=== PATIENT | female | born 1995 | race Caucasian/White ===

== ENCOUNTER 2017-07-04 14:00 | Inpatient (IN) | payer OTHER ==
[2017-07-04] VITALS (10 sets, daily range): BP systolic 94–121; BP diastolic 54–85
[~2017-07-04] VITALS: Ht 165.1 cm; Wt 63.5 kg
[~2017-07-04 14:00] MED LIST: Sodium Chloride 500ML 500 ML IV ONE
[2017-07-04 14:24] LABS: BASOPHILS % (AUTO) 0.3 % (0.0-2.0); HEMATOCRIT 52.1 % (37.0-47.0); HEMOGLOBIN 15.9 G/DL (12.0-16.0); MEAN CORPUSCULAR VOLUME 97 FL (80-99); MONOCYTES % (AUTO) 3.7 % (1.0-10.0); NEUTROPHILS % (AUTO) 77.9 % (45.0-75.0); PLATELET COUNT 386 K/UL (150-450); RED BLOOD COUNT 5.38 M/UL (4.20-5.40); RED CELL DISTRIBUTION WIDTH 13.4 % (11.6-14.8); WHITE BLOOD COUNT 16.1 K/UL (4.8-10.8)
[2017-07-04] MEDS ORDERED: Sodium Bicarbonate 50ml Carp IV ONE (14:30)
[2017-07-04] MEDS: LR 1000ml 1,000 ML IV SCH ×3 (14:30→20:40)
--- NOTE | 2017-07-04 14:37 | Emergency Room Report ---
History of Present Illness General Chief Complaint: Abdominal Pain Source: Patient, Medical Record Present Illness HPI The patient presents with at least 3 days of abdominal discomfort and vomiting. She is diabetic and stopped taking her insulin yesterday. She feels short of breath. She has some abdominal discomfort. She's vomited up some material that might have some blood in it. She denies any melena. She's never been this ill before. She does take insulin. She denies at this time. She denies dysuria or productive cough. She also has had no fever. She feels generalized weakness. Lower back pain more than abdomen = 10/10, aching, constant. No diarrhea. She feels somewhat confused. Vision has been blurry. Allergies: Coded Allergies: No Known Allergies (Unverified , 07/04/17) Patient History Past Medical History: see triage record Social History: Denies: smoking, alcohol use, drug use Social History Narrative from [place] with boyfriend in [place] Reviewed Nursing Documentation: PMH: Agreed, PSxH: Agreed Nursing Documentation-PMH Past Medical History: No History, Except For Hx Diabetes: Yes - type I Review of Systems All Other Systems: negative except mentioned in HPI Physical Exam Vital Signs Date Time Temp Pulse Resp B/P (MAP) Pulse Ox O2 Delivery O2 Flow Rate FiO2 07/04/17 13:51 98.8 128 18 109/69 97 Room Air Sp02 EP Interpretation: reviewed, normal General Appearance: moderate distress, lethargic, thin Head: normocephalic Eyes: bilateral eye normal inspection, bilateral eye PERRL ENT: dry mucus membranes Neck: supple Respiratory: chest non-tender, lungs clear, other - Kussmaul respirations Cardiovascular #1: regular rate, rhythm Cardiovascular #2: 2+ radial (R) Gastrointestinal: normal inspection, no mass, non-distended, tenderness - reported, but no guarding or rebound, decreased bowel sounds, scaphoid Genitourinary: no CVA tenderness Musculoskeletal: gait/station normal, normal range of motion, other - reported back tenderness, no bony tenderness Neurologic: responsive, motor strength/tone normal, DTRs symmetric, sensory intact, speech normal Psychiatric: depressed affect Skin: normal inspection, warm/dry Procedures Critical Care Time Critical Care Time Total Critical Care Time: 120 min bedside evaluation and treatment excludes procedures (EKG). Reason for critical care: hyperglycemia, volume depletion, insulin drip, metabolic acidosis, renal insufficiency, repeated evaluations and lab re- evaluation. Possible complications: hypotension, shock, arrhythmias, metabolic acidosis, end organ damage, hypoglycemia. Interventions: Aggressive hydration, insulin IV, insulin drip, analgesia Course: Patient presented with vomiting, back pain and elevated blood sugar. DKA encountered. Initial acidosis treated with one amp bicarb. Aggressive fluid hydration and IV insulin led to decreased in glucose and clinical improvement. Lethargy somewhat prolonged, but repeated examinations, had improvement. Multiple glucose determinations and repeat examinations with discussion with patient and admitting MD. Prolonged acidosis required continuing insulin drip and D51/2NS with potassium. Reassessment of acidosis undertaken. Glucose holding on D51/2NS and potassium holding also. Improved renal function and clinical status. Admitted to ICU. Consultations/alternative hx: Admitting MD, nursing staff, RT, EMS Performed by: Dr. Caraballo Tolerated well with improvement though still critical. Medical Decision Making Diagnostic Impression: Primary Impression: Diabetic ketoacidosis Qualified Codes: E10.10 - Type 1 diabetes mellitus with ketoacidosis without coma Additional Impressions: Leukocytosis Qualified Codes: D72.828 - Other elevated white blood cell count Renal insufficiency Back pain Qualified Codes: M54.5 - Low back pain Vomiting Qualified Codes: R11.14 - Bilious vomiting ER Course This patient is a diabetic presenting with abdominal pain and vomiting not taking her insulin. Differential includes diabetic ketoacidosis, hyperglycemic osmotic state, hyperglycemia, sepsis, , gastritis, pancreatitis amongst others. N. exam diabetic ketoacidosis as high on the list. Return with IV hydration and repeated glucose. A venous blood gas will be obtained and his bicarbonate was less than 10 she'll get IV bicarbonate. Most likely she will need an insulin drip. Venous blood gas shows a pH of 7.04 with bicarbonate of 6. One amp of bicarbonate was given a. Labs revealed a glucose of 661. Metabolic acidosis, renal insufficiency, leukocytosis. No source of infection and decision to observe without starting antibiotics. 10 units of insulin skin is bolus and the patient was started on 5 units per hour drip of insulin. Patient somewhat obtunded but wakes easily. Patient with improved mentation at 16:15. Treated for pain. Also repeat CMP sent. Accucheck now 406. Examined by Dr. Petit in ED. On insulin drip, sugars 200s. Still with low bicarb. (repeated evaluations with CMP and repeated exams). Clinically improved and no Kussmaul resps. No complaints of pain. Repeat CMP with improved bicarb, still with gap. Renal function better. Glucose 156. Continue drip and hydration - improved tachycardia. Signed out to Dr. Gonzalez. Venous ABG 7.04/HCO3 6 Laboratory Tests Test 07/04/17 14:08 07/04/17 14:14 07/04/17 18:04 07/04/17 20:10 Venous Blood pH Pending Venous Blood Partial Pressure CO2 Pending Venous Blood Partial Pressure O2 Pending Venous Blood HCO3 Pending Venous Blood Total Carbon Dioxide Pending Venous Bld O2 Saturation (Measured) 48.3 Venous Blood Oxygen Saturation Pending Venous Blood Base Excess Pending Methemoglobin 0.4 Sodium (Blood Gas) Pending White Blood Count 16.1 K/UL (4.8-10.8) H Red Blood Count 5.38 M/UL (4.20-5.40) Hemoglobin 15.9 G/DL (12.0-16.0) Hematocrit 52.1 % (37.0-47.0) H Mean Corpuscular Volume 97 FL (80-99) Mean Corpuscular Hemoglobin 29.6 PG (27.0-31.0) Mean Corpuscular Hemoglobin Concent 30.6 G/DL (32.0-36.0) L Red Cell Distribution Width 13.4 % (11.6-14.8) Platelet Count 386 K/UL (150-450) Mean Platelet Volume 6.3 FL (6.5-10.1) L Neutrophils (%) (Auto) 77.9 % (45.0-75.0) H Lymphocytes (%) (Auto) 18.0 % (20.0-45.0) L Monocytes (%) (Auto) 3.7 % (1.0-10.0) Eosinophils (%) (Auto) 0.0 % (0.0-3.0) Basophils (%) (Auto) 0.3 % (0.0-2.0) Sodium Level 137 MMOL/L (136-145) 147 MMOL/L (136-145) #H 147 MMOL/L (136-145) H Potassium Level 4.7 MMOL/L (3.5-5.1) 3.7 MMOL/L (3.5-5.1) 3.8 MMOL/L (3.5-5.1) Chloride Level 95 MMOL/L (98-107) L 107 MMOL/L (98-107) 107 MMOL/L (98-107) Carbon Dioxide Level 6 MMOL/L (21-32) *L 8 MMOL/L (21-32) *L 7 MMOL/L (21-32) *L Anion Gap 36 mmol/L (5-15) H 32 mmol/L (5-15) H 33 mmol/L (5-15) H Blood Urea Nitrogen 14 mg/dL (7-18) 14 mg/dL (7-18) 13 mg/dL (7-18) Creatinine 1.5 MG/DL (0.55-1.30) H 1.5 MG/DL (0.55-1.30) H 1.6 MG/DL (0.55-1.30) H Estimate Glomerular Filtration Rate 43.0 mL/min (>60) 43.0 mL/min (>60) 39.9 mL/min (>60) Glucose Level 662 MG/DL (74-106) *H 285 MG/DL (74-106) #H 285 MG/DL (74-106) H Calcium Level 10.1 MG/DL (8.5-10.1) 9.4 MG/DL (8.5-10.1) 9.2 MG/DL (8.5-10.1) Magnesium Level 2.1 MG/DL (1.8-2.4) Total Bilirubin 0.8 MG/DL (0.2-1.0) 0.4 MG/DL (0.2-1.0) Aspartate Amino Transferase (AST) 34 U/L (15-37) 33 U/L (15-37) Alanine Aminotransferase (ALT) 39 U/L (12-78) 38 U/L (12-78) Alkaline Phosphatase 183 U/L (46-116) H 166 U/L (46-116) H Total Protein 8.4 G/DL (6.4-8.2) H 8.0 G/DL (6.4-8.2) Albumin 4.1 G/DL (3.4-5.0) 3.8 G/DL (3.4-5.0) Globulin 4.3 g/dL 4.2 g/dL Albumin/Globulin Ratio 1.0 (1.0-2.7) 0.9 (1.0-2.7) L Lipase 62 U/L (73-393) L Human Chorionic Gonadotropin, Qual Negative Acetone Level Positive-moderate (NEGATIVE) Hemoglobin A1c 11.2 % (4.3-6.0) H Phosphorus Level 4.0 MG/DL (2.5-4.9) Test 07/04/17 22:40 Sodium Level 144 MMOL/L (136-145) Potassium Level 3.6 MMOL/L (3.5-5.1) Chloride Level 110 MMOL/L (98-107) H Carbon Dioxide Level 16 MMOL/L (21-32) L Anion Gap 18 mmol/L (5-15) H Blood Urea Nitrogen 11 mg/dL (7-18) Creatinine 1.2 MG/DL (0.55-1.30) Estimate Glomerular Filtration Rate 55.7 mL/min (>60) Glucose Level 156 MG/DL (74-106) #H Calcium Level 8.7 MG/DL (8.5-10.1) Total Bilirubin 0.5 MG/DL (0.2-1.0) Aspartate Amino Transferase (AST) 22 U/L (15-37) Alanine Aminotransferase (ALT) 29 U/L (12-78) Alkaline Phosphatase 127 U/L (46-116) H Total Protein 6.2 G/DL (6.4-8.2) L Albumin 3.0 G/DL (3.4-5.0) L Globulin 3.2 g/dL Albumin/Globulin Ratio 0.9 (1.0-2.7) L Microbiology Date/Time Source Procedure Growth Status 07/04/17 22:40 Nasal Not Otherwise Specified Influenza Types A,B Antigen (GOLDY) - Final Complete EKG Diagnostic Results Rate: tachycardiac ST Segments: no acute changes Rhythm Strip Diag. Results EP Interpretation: yes Rhythm: no PVC's, no ectopy, other - ST Chest X-Ray Diagnostic Results Chest X-Ray Diagnostic Results : Chest X-Ray Ordered: Yes # of Views/Limited/Complete: 1 View Indication: Shortness of Breath EP Interpretation: Yes Interpretation: no consolidation, no effusion, no pneumothorax Impression: No acute disease Electronically Signed by: Electronically signed by Jean-Claude Caraballo MD Last Vital Signs Date Time Temp Pulse Resp B/P (MAP) Pulse Ox O2 Delivery O2 Flow Rate FiO2 07/04/17 22:40 99.2 105 14 104/54 99 Room Air 99 Status: improved Disposition: ADMITTED INPATIENT Condition: Critical Jean-Claude Caraballo M.D. Jul 04, 2017 14:37
[2017-07-04 14:41] LABS: ALANINE AMINOTRANSFERASE 39 U/L (12-78); ALBUMIN 4.1 G/DL (3.4-5.0); ALKALINE PHOSPHATASE 183 U/L (46-116); ANION GAP 36 mmol/L (5-15); ASPARTATE AMINO TRANSFERASE 34 U/L (15-37); BILIRUBIN,TOTAL 0.8 MG/DL (0.2-1.0); BLOOD UREA NITROGEN 14 mg/dL (7-18); CALCIUM 10.1 MG/DL (8.5-10.1); CHLORIDE 95 MMOL/L (98-107); CREATININE 1.5 MG/DL (0.55-1.30); POTASSIUM 4.7 MMOL/L (3.5-5.1); SODIUM 137 MMOL/L (136-145)
[2017-07-04] MEDS ORDERED: LANTUS SOL100 UNIT/1 SUBQ (14:47)
[2017-07-04 14:51] LABS: CARBON DIOXIDE 6 MMOL/L (21-32)
[2017-07-04] MEDS ORDERED: Insulin Rate Change 1 Each MISC PRN (15:45)
[2017-07-04] MEDS ORDERED: Levemir Flexpen SUBQ SCH (15:45)
[2017-07-04] MEDS ORDERED: DiphenhydrAMINE 50mg/ml Inj IVP ONE (16:00)
[2017-07-04] MEDS ORDERED: fentaNYL 100 mcg/2 mL IV ONE (16:45)
[2017-07-04] MEDS ORDERED: HUMALOG MI100 UNIT/7 SUBQ (17:53)
[2017-07-04] MEDS ORDERED: FUROSEMIDE20 M1 ORAL (17:53)
[2017-07-04] MEDS ORDERED: D5 1/2NS w/KCl 20mEq 1,000 ML IV ONE (18:29)
[2017-07-04 19:02] LABS: ANION GAP 32 mmol/L (5-15); BLOOD UREA NITROGEN 14 mg/dL (7-18); CALCIUM 9.4 MG/DL (8.5-10.1); CHLORIDE 107 MMOL/L (98-107); CREATININE 1.5 MG/DL (0.55-1.30); POTASSIUM 3.7 MMOL/L (3.5-5.1); SODIUM 147 MMOL/L (136-145)
[2017-07-04 19:05] LABS: CARBON DIOXIDE 8 MMOL/L (21-32)
[2017-07-04 20:40] LABS: ANION GAP 33 mmol/L (5-15); BLOOD UREA NITROGEN 13 mg/dL (7-18); CALCIUM 9.2 MG/DL (8.5-10.1); CHLORIDE 107 MMOL/L (98-107); CREATININE 1.6 MG/DL (0.55-1.30); POTASSIUM 3.8 MMOL/L (3.5-5.1); SODIUM 147 MMOL/L (136-145)
[2017-07-04 20:43] LABS: CARBON DIOXIDE 7 MMOL/L (21-32)
[2017-07-04 20:45] LABS: ALANINE AMINOTRANSFERASE 38 U/L (12-78); ALBUMIN 3.8 G/DL (3.4-5.0); ALBUMIN/GLOBULIN RATIO 0.9 (1.0-2.7); ALKALINE PHOSPHATASE 166 U/L (46-116); ASPARTATE AMINO TRANSFERASE 33 U/L (15-37); BILIRUBIN,TOTAL 0.4 MG/DL (0.2-1.0)
[2017-07-04 23:14] LABS: ANION GAP 18 mmol/L (5-15); BLOOD UREA NITROGEN 11 mg/dL (7-18); CALCIUM 8.7 MG/DL (8.5-10.1); CARBON DIOXIDE 16 MMOL/L (21-32); CHLORIDE 110 MMOL/L (98-107); CREATININE 1.2 MG/DL (0.55-1.30); POTASSIUM 3.6 MMOL/L (3.5-5.1); SODIUM 144 MMOL/L (136-145)
[2017-07-04 23:19] LABS: ALANINE AMINOTRANSFERASE 29 U/L (12-78); ALBUMIN/GLOBULIN RATIO 0.9 (1.0-2.7); ALKALINE PHOSPHATASE 127 U/L (46-116); ASPARTATE AMINO TRANSFERASE 22 U/L (15-37); BILIRUBIN,TOTAL 0.5 MG/DL (0.2-1.0)
[2017-07-05] VITALS (11 sets, daily range): BP systolic 98–128; BP diastolic 52–81
[2017-07-05] MEDS: LR 1000ml 1,000 ML IV SCH ×3 (00:05→06:38)
--- NOTE | 2017-07-05 02:00 | History and Physical Report ---
DATE OF ADMISSION: 07/04/2017 CHIEF COMPLAINT: Diabetic ketoacidosis. HISTORY OF PRESENT ILLNESS: The patient is a pleasant 21-year-old female. She has a history of diabetes type 1 since the age of 7. She presented with complaints of "flu" starting on Wednesday. She had generalized malaise, weakness, and then Wednesday and Wednesday developed nausea and vomiting and lower abdominal pain. She presented to the emergency room and there was noted to be in diabetic ketoacidosis. [place] [address]. UA was clear. Her bicarbonate was only 6 and glucose 662. She has been started on IV hydration and insulin drip and is now being admitted for further evaluation and care. PAST MEDICAL HISTORY: As above. She has a history of neuropathy, "fluid retention." MEDICATIONS: Current medicines were reconciled and reviewed. ALLERGIES: None. SOCIAL HISTORY: Negative for tobacco, ethanol, or drugs. FAMILY HISTORY: None. REVIEW OF SYSTEMS: Negative except for generalized malaise, weakness, nausea, vomiting, and some diarrhea. PHYSICAL EXAMINATION: VITAL SIGNS: Temperature 98 degrees, blood pressure 94/82, pulse of 132, respirations 18. GENERAL: The patient is a well-developed female, in no apparent distress. She appears moderately ill, but is awake and alert, answers questions. HEENT: Her pupils are equal, round, and reactive to light. Oropharynx clear. NECK: Supple. HEART: Tachycardic. LUNGS: Clear. ABDOMEN: Soft, nontender, and nondistended. EXTREMITIES: Without clubbing, cyanosis, or edema. LABORATORY DATA: White count 16, hemoglobin 15, hematocrit 52. Sodium 137, potassium 4.7, chloride 95, bicarbonate 6, BUN 14, creatinine was 1.5, glucose 662. UA was clear. ASSESSMENT: This is a pleasant female, admitted with complaints of diabetic ketoacidosis: 1. Diabetic ketoacidosis. 2. History of neuropathy. PLAN: Aggressive fluid resuscitation. Insulin drip. Endocrine consultation in the morning. Antiemetics and pain medications as needed. Josias Petit M.D. DR: Meron JOB#: [id number] CC:
[2017-07-05 02:03] LABS: ANION GAP 11 mmol/L (5-15); BLOOD UREA NITROGEN 9 mg/dL (7-18); CALCIUM 8.5 MG/DL (8.5-10.1); CARBON DIOXIDE 21 MMOL/L (21-32); CHLORIDE 111 MMOL/L (98-107); CREATININE 1.1 MG/DL (0.55-1.30); POTASSIUM 3.8 MMOL/L (3.5-5.1); SODIUM 142 MMOL/L (136-145)
[2017-07-05] MEDS ORDERED: Morphine Sulfate 4mg/ml Inj IVP ONE (02:15)
[2017-07-05] MEDS ORDERED: Levemir Flexpen SUBQ ONE ×2 (02:45→03:43)
--- NOTE | 2017-07-05 05:17 | Emergency Room Report ---
Physical Exam Vital Signs Date Time Temp Pulse Resp B/P (MAP) Pulse Ox O2 Delivery O2 Flow Rate FiO2 07/04/17 13:51 98.8 128 18 109/69 97 Room Air 07/04/17 14:15 99 Medical Decision Making Diagnostic Impression: Primary Impression: Diabetic ketoacidosis Qualified Codes: E10.10 - Type 1 diabetes mellitus with ketoacidosis without coma Additional Impressions: Back pain Qualified Codes: M54.5 - Low back pain Leukocytosis Qualified Codes: D72.828 - Other elevated white blood cell count Renal insufficiency Vomiting Qualified Codes: R11.14 - Bilious vomiting ER Course This patient was signed out to me. She presents with flulike illness with vomiting. She was in DKA and was on insulin drip. She did well overnight. Was able to wean her off of her insulin drip and transition her to her regular insulin. I gave her Levemir because we do not have Lantus here. Also cover with regular insulin. Patient will be downgraded to a MedSur bed. I discussed this with . Last Vital Signs Date Time Temp Pulse Resp B/P (MAP) Pulse Ox O2 Delivery O2 Flow Rate FiO2 07/05/17 03:45 98.2 105 14 112/54 97 Room Air 99 Status: improved Disposition: ADMITTED INPATIENT Condition: Serious Referrals: NOT CHOSEN DANIEL/,REFERRING (PCP) FLAVIO MENCHACA M.D. Jul 05, 2017 05:17
[2017-07-05 06:01] LABS: BASOPHILS % (AUTO) 0.7 % (0.0-2.0); EOSINOPHILS % (AUTO) 0.1 % (0.0-3.0); HEMATOCRIT 38.1 % (37.0-47.0); HEMOGLOBIN 12.3 G/DL (12.0-16.0); LYMPHOCYTES % (AUTO) 24.8 % (20.0-45.0); MEAN CORPUSCULAR VOLUME 93 FL (80-99); MONOCYTES % (AUTO) 11.1 % (1.0-10.0); NEUTROPHILS % (AUTO) 63.4 % (45.0-75.0); PLATELET COUNT 233 K/UL (150-450); RED BLOOD COUNT 4.12 M/UL (4.20-5.40); WHITE BLOOD COUNT 11.1 K/UL (4.8-10.8)
[2017-07-05 06:15] LABS: ANION GAP 16 mmol/L (5-15); BLOOD UREA NITROGEN 9 mg/dL (7-18); CALCIUM 8.7 MG/DL (8.5-10.1); CARBON DIOXIDE 16 MMOL/L (21-32); CHLORIDE 110 MMOL/L (98-107); CREATININE 1.1 MG/DL (0.55-1.30); SODIUM 142 MMOL/L (136-145)
[2017-07-05 06:20] LABS: ALANINE AMINOTRANSFERASE 31 U/L (12-78); ALBUMIN 2.7 G/DL (3.4-5.0); ALBUMIN/GLOBULIN RATIO 0.8 (1.0-2.7); ALKALINE PHOSPHATASE 120 U/L (46-116); ASPARTATE AMINO TRANSFERASE 23 U/L (15-37); BILIRUBIN,TOTAL 0.5 MG/DL (0.2-1.0)
--- NOTE | 2017-07-05 08:52 | General Progress Note ---
Assessment/Plan Problem List: (1) Vomiting ICD Codes: R11.10 - Vomiting, unspecified SNOMED: 086172761, [id number] Qualifiers: Qualified Codes: R11.14 - Bilious vomiting (2) Diabetic ketoacidosis ICD Codes: E13.10 - Other specified diabetes mellitus with ketoacidosis without coma SNOMED: [id number], [id number] Qualifiers: Qualified Codes: E10.10 - Type 1 diabetes mellitus with ketoacidosis without coma Status: stable, progressing Assessment/Plan cont ivf off drip repeat lytes at noon endo eval resume long active insulin. Subjective ROS Limited/Unobtainable: No Constitutional: Reports: malaise, weakness HEENT: Reports: no symptoms Cardiovascular: Reports: no symptoms Respiratory: Reports: cough Gastrointestinal/Abdominal: Reports: poor appetite Genitourinary: Reports: no symptoms Neurologic/Psychiatric: Reports: no symptoms Endocrine: Reports: no symptoms Hematologic/Lymphatic: Reports: no symptoms Allergies: Coded Allergies: No Known Allergies (Unverified , 07/04/17) All Systems: reviewed and negative except above Subjective gap improving. off insulin drip. dcd by er md in ER. still with some nausea, Objective Last 24 Hour Vital Signs Date Time Temp Pulse Resp B/P (MAP) Pulse Ox O2 Delivery O2 Flow Rate FiO2 07/05/17 08:21 98.6 07/05/17 08:18 98.6 95 14 128/81 99 Room Air 99 07/05/17 07:10 98.6 95 14 128/81 99 Room Air 99 07/05/17 05:45 98.4 93 14 123/80 99 Room Air 99 07/05/17 04:45 98.2 98 14 103/59 98 Room Air 99 07/05/17 03:45 98.2 105 14 112/54 97 Room Air 99 07/05/17 02:40 98.6 106 14 98/53 99 Room Air 99 07/05/17 01:40 98.9 108 14 103/61 98 Room Air 99 07/05/17 00:40 99.1 106 14 100/55 100 Room Air 99 07/04/17 23:40 99.3 108 15 99/54 98 Room Air 99 07/04/17 22:40 99.2 105 14 104/54 99 Room Air 99 07/04/17 21:40 99.6 106 15 102/54 98 Room Air 99 07/04/17 20:40 98.2 111 14 106/63 98 Room Air 99 07/04/17 19:44 98.2 119 17 110/85 98 Room Air 07/04/17 18:30 132 18 94/82 99 Room Air 07/04/17 17:30 140 19 110/69 98 Room Air 07/04/17 16:30 148 24 115/85 99 Room Air 07/04/17 15:10 127 23 121/70 99 Room Air 07/04/17 14:15 147 27 Room Air 99 07/04/17 14:05 98.3 147 27 108/64 97 Room Air 07/04/17 13:51 98.8 128 18 109/69 97 Room Air Intake and Output 07/04/17 07/05/17 19:00 07:00 Intake Total 3425 ml Output Total 800 ml Balance -800 ml 3425 ml Intake IV Total 3425 ml Output Urine Total 800 ml Laboratory Tests 07/04/17 14:08: Venous Blood pH [Pending], Venous Blood Partial Pressure CO2 [Pending], Venous Blood Partial Pressure O2 [Pending], Venous Blood HCO3 [Pending], Venous Blood Total Carbon Dioxide [Pending], Venous Bld O2 Saturation (Measured) 48.3, Venous Blood Oxygen Saturation [Pending], Venous Blood Base Excess [Pending], Methemoglobin 0.4, Sodium (Blood Gas) [Pending] 07/04/17 14:14: White Blood Count 16.1H, Red Blood Count 5.38, Hemoglobin 15.9, Hematocrit 52.1H , Mean Corpuscular Volume 97, Mean Corpuscular Hemoglobin 29.6, Mean Corpuscular Hemoglobin Concent 30.6L, Red Cell Distribution Width 13.4, Platelet Count 386, Mean Platelet Volume 6.3L, Neutrophils (%) (Auto) 77.9H, Lymphocytes (%) (Auto) 18.0L, Monocytes (%) (Auto) 3.7, Eosinophils (%) (Auto) 0.0, Basophils (%) (Auto) 0.3, Sodium Level 137, Potassium Level 4.7, Chloride Level 95L, Carbon Dioxide Level 6*L, Anion Gap 36H, Blood Urea Nitrogen 14, Creatinine 1.5H, Estimat Glomerular Filtration Rate 43.0, Glucose Level 662*H, Calcium Level 10.1, Magnesium Level 2.1, Total Bilirubin 0.8, Aspartate Amino Transf (AST/SGOT) 34, Alanine Aminotransferase (ALT/SGPT) 39, Alkaline Phosphatase 183H, Total Protein 8.4H, Albumin 4.1, Globulin 4.3, Albumin/ Globulin Ratio 1.0, Lipase 62L, Human Chorionic Gonadotropin, Qual Negative, Acetone Level Positive-moderate 07/04/17 18:04: Sodium Level 147#H, Potassium Level 3.7, Chloride Level 107, Carbon Dioxide Level 8*L, Anion Gap 32H, Blood Urea Nitrogen 14, Creatinine 1.5H, Estimat Glomerular Filtration Rate 43.0, Glucose Level 285#H, Calcium Level 9.4, Hemoglobin A1c 11.2H 07/04/17 20:10: Sodium Level 147H, Potassium Level 3.8, Chloride Level 107, Carbon Dioxide Level 7*L, Anion Gap 33H, Blood Urea Nitrogen 13, Creatinine 1.6H, Estimat Glomerular Filtration Rate 39.9, Glucose Level 285H, Calcium Level 9.2, Total Bilirubin 0.4, Aspartate Amino Transf (AST/SGOT) 33, Alanine Aminotransferase ( ALT/SGPT) 38, Alkaline Phosphatase 166H, Total Protein 8.0, Albumin 3.8, Globulin 4.2, Albumin/Globulin Ratio 0.9L, Phosphorus Level 4.0 07/04/17 22:40: Sodium Level 144, Potassium Level 3.6, Chloride Level 110H, Carbon Dioxide Level 16L, Anion Gap 18H, Blood Urea Nitrogen 11, Creatinine 1.2, Estimat Glomerular Filtration Rate 55.7, Glucose Level 156#H, Calcium Level 8.7, Total Bilirubin 0.5, Aspartate Amino Transf (AST/SGOT) 22, Alanine Aminotransferase ( ALT/SGPT) 29, Alkaline Phosphatase 127H, Total Protein 6.2L, Albumin 3.0L, Globulin 3.2, Albumin/Globulin Ratio 0.9L 07/05/17 01:45: Sodium Level 142, Potassium Level 3.8, Chloride Level 111H, Carbon Dioxide Level 21, Anion Gap 11, Blood Urea Nitrogen 9, Creatinine 1.1, Estimat Glomerular Filtration Rate > 60, Glucose Level 173H, Calcium Level 8.5 07/05/17 05:55: Sodium Level 142, Potassium Level 3.0L, Chloride Level 110H, Carbon Dioxide Level 16L, Anion Gap 16H, Blood Urea Nitrogen 9, Creatinine 1.1, Estimat Glomerular Filtration Rate > 60, Glucose Level 208H, Calcium Level 8.7, Total Bilirubin 0.5, Aspartate Amino Transf (AST/SGOT) 23, Alanine Aminotransferase ( ALT/SGPT) 31, Alkaline Phosphatase 120H, Total Protein 6.0L, Albumin 2.7L, Globulin 3.3, Albumin/Globulin Ratio 0.8L, White Blood Count 11.1H, Red Blood Count 4.12L, Hemoglobin 12.3, Hematocrit 38.1, Mean Corpuscular Volume 93, Mean Corpuscular Hemoglobin 29.9, Mean Corpuscular Hemoglobin Concent 32.3, Red Cell Distribution Width 13.0, Platelet Count 233, Mean Platelet Volume 6.0L, Neutrophils (%) (Auto) 63.4, Lymphocytes (%) (Auto) 24.8, Monocytes (%) (Auto) 11.1H, Eosinophils (%) (Auto) 0.1, Basophils (%) (Auto) 0.7 Height (Feet): 5 Height (Inches): 5.00 Weight (Pounds): 120 General Appearance: WD/WN, alert Neck: supple Cardiovascular: regular rhythm Respiratory/Chest: lungs clear Abdomen: normal bowel sounds, non tender, soft, no organomegaly Edema: no edema noted Arm (L), no edema noted Arm (R), no edema noted Leg (L), no edema noted Leg (R), no edema noted Pedal (L), no edema noted Pedal (R), no edema noted Generalized ANUEDY GIRON Jul 05, 2017 08:52
--- NOTE | 2017-07-05 09:48 | Diagnostic Imaging Report ---
Indication: Dyspnea, altered level of consciousness Technique: XRAY Chest 1v Comparison: None Findings: Heart size and mediastinal contours are within normal limits given technique. There is no focal consolidation, pneumothorax or pleural effusion. Osseous structures demonstrate no acute abnormality. Abdominal shield in place. Impression: No radiographic evidence of acute cardiopulmonary disease.
[2017-07-05] MEDS: Levemir Flexpen SUBQ SCH ×2 (10:18→18:17)
[2017-07-05 10:34] LABS: ANION GAP 15 mmol/L (5-15); BLOOD UREA NITROGEN 8 mg/dL (7-18); CALCIUM 9.1 MG/DL (8.5-10.1); CARBON DIOXIDE 18 MMOL/L (21-32); CHLORIDE 109 MMOL/L (98-107); CREATININE 1.1 MG/DL (0.55-1.30); POTASSIUM 3.4 MMOL/L (3.5-5.1); SODIUM 142 MMOL/L (136-145)
[2017-07-05 12:20] LABS: ALANINE AMINOTRANSFERASE 28 U/L (12-78); ALBUMIN 2.8 G/DL (3.4-5.0); ALBUMIN/GLOBULIN RATIO 0.9 (1.0-2.7); ALKALINE PHOSPHATASE 119 U/L (46-116); ANION GAP 9 mmol/L (5-15); ASPARTATE AMINO TRANSFERASE 23 U/L (15-37); BLOOD UREA NITROGEN 7 mg/dL (7-18); CALCIUM 9.5 MG/DL (8.5-10.1); CARBON DIOXIDE 25 MMOL/L (21-32); CHLORIDE 110 MMOL/L (98-107); CREATININE 1.1 MG/DL (0.55-1.30); POTASSIUM 4.1 MMOL/L (3.5-5.1); SODIUM 144 MMOL/L (136-145)
[2017-07-05 12:32] LABS: BILIRUBIN,TOTAL 0.5 MG/DL (0.2-1.0)
[2017-07-05] MEDS: NovoLOG Insulin Flexpen SUBQ SCH ×3 (12:32→20:10)
[2017-07-06] VITALS: BP 101/56
[2017-07-06 04:00] VITALS: BP 103/63
[2017-07-06] MEDS: NovoLOG Insulin Flexpen SUBQ SCH ×4 (06:12→11:57)
[2017-07-06 07:59] LABS: ALANINE AMINOTRANSFERASE 60 U/L (12-78); ALBUMIN 2.8 G/DL (3.4-5.0); ALBUMIN/GLOBULIN RATIO 0.9 (1.0-2.7); ALKALINE PHOSPHATASE 123 U/L (46-116); ANION GAP 9 mmol/L (5-15); ASPARTATE AMINO TRANSFERASE 152 U/L (15-37); BILIRUBIN,TOTAL 0.3 MG/DL (0.2-1.0); BLOOD UREA NITROGEN 6 mg/dL (7-18); CALCIUM 8.8 MG/DL (8.5-10.1); CARBON DIOXIDE 26 MMOL/L (21-32); CHLORIDE 110 MMOL/L (98-107); CREATININE 0.7 MG/DL (0.55-1.30); POTASSIUM 3.1 MMOL/L (3.5-5.1); SODIUM 145 MMOL/L (136-145)
[2017-07-06 08:00] VITALS: BP 117/67
[2017-07-06] MEDS ORDERED: ZOFRAN ODT8 MG ORAL (08:35)
[2017-07-06] MEDS: Levemir Flexpen SUBQ SCH (08:48)
[2017-07-06 12:00] VITALS: BP 108/64
--- NOTE | 2017-07-06 21:30 | Discharge Summary ---
DATE OF ADMISSION: 07/04/2017 DATE OF DISCHARGE: 07/06/2017 ADMISSION DIAGNOSIS: Diabetic ketoacidosis. DISCHARGE DIAGNOSIS: Diabetic ketoacidosis. HOSPITAL COURSE: The patient is a pleasant female, who presented with complaints of diabetic ketoacidosis. She was initially admitted to intensive care unit on insulin drip. She had close monitoring of electrolytes and blood sugars. She was eventually weaned off the insulin drip and placed back on a regular regimen. On discharge, her sugars were controlled. Her gap was closed. She will follow up with her PMD in [place]. She is currently moving to [place]. She is instructed to return for any shortness of breath, chest pain, nausea, or vomiting. Josias Petit M.D. DR: TAMI JOB#: [id number] CC:
--- NOTE | 2017-07-19 14:04 | Cardiology Report ---
APPROVED REPORT EKG Measurement Heart [id number] N[address] and T wave abnormality Abnormal ECG
== END 2017-07-06 12:13 | disposition home or self-care (01) | DRG 639 ==
LOC: EDBD 14:00 → EMR 14:30 → 4E 15:08 → EDBEDREQ 07-05 02:12 → EDBEDREQSVC 07-05 02:12 → EDBEDREQ 07-05 02:13
DX: E10.10 Type 1 diabetes mellitus with ketoacidosis without coma (principal); E10.40 Type 1 diabetes mellitus with diabetic neuropathy, unspecified; Z79.4 Long term (current) use of insulin
CPT/HCPCS: 36415; 71045; 80048; 80053; 82009; 82962; 83036; 83690; 83735; 84100; 84703; 85025; 86710; 87081; 93005; J1815; J2405; J8499; S5561